=== PATIENT | male | born 1950 | race Caucasian/White ===

== ENCOUNTER 2021-09-03 16:52 | Emergency (ER) | payer OTHER, SELFPAY ==
[2021-09-03 16:59] VITALS: BP 160/85; PULSE 95; RESP 16; TEMP 36.1; O2SAT 98
--- NOTE | 2021-09-03 17:00 | DI.RAD_ITS ---
Exam(s) XR KNEE LT 2V AP,LAT EXAM: XR KNEE LT 2V AP,LAT CLINICAL HISTORY: painful effusion. TECHNIQUE: 2D digital imaging was performed of the left knee. Two images were obtained. AP and lat eral views were obtained. COMPARISON: No exams were available for comparison FINDINGS: BONES: No acute fracture is present. No bony destructive lesion is seen. Probably incidental chronic growth arrest lines are seen in the distal femoral diaphysis. No periosteal reaction or cortical komal cency is seen. JOINTS: The knee is normally aligned. Moderate joint effusion. Very mild degenerative changes are se en in the knee. SOFT TISSUE: Normal. IMPRESSION: Moderate joint effusion. DATA REPOSITORY: RADIATION DOSE DELIVERED:
--- NOTE | 2021-09-03 17:17 | ED.GENADUL_ITS ---
Discharge Plan Disposition Patient Disposition: HOME Condition: Stable Discharge Details Chief Complaint: Orthopedic Clinical Impression: Knee swelling Primary Care Provider: Unknown,Unknown ED Provider: Cuco Gonzalez Home Meds and New Rx's Prescriptions: No Action No Known Home Meds Discharge Instructions Instructions: Swollen Knee Joint (ED) Additional Instructions: Please follow-up tomorrow no with orthopedic surgical team. [facility]. Please return to the emergency department if you develop fevers chills sweats worsening pain redness swelling or other signs of infection. Medical Decision Making 71-year-old male presents with atraumatic left knee effusion, afebrile nontoxic ambulatory, range of motion largely intact however full flexion inhibited by tension in knee pain, warm knee without erythema or induration, no signs of trauma, soft compartments sensate extremity good perfusion, consider effusion related to osteoarthritis versus gout versus must consider early septic joint given subjective chills versus unlikely fracture dislocation or ligamentous injury given history and physical. Screening x-ray, labs inflammatory markers cultures, will perform arthrocentesis to send for culture Gram stain crystals cell count protein LDH, analgesia anti-inflammatory close reassessment disposition pending results of arthrocentesis. 22: 59 patient resting comfortably no acute distress. Afebrile nontoxic. Arthrocentesis resulted in 20 cc of cloudy yellow synovial fluid, sent for lab analysis, unfortunately the lab called to say that because sample was partially clotted they could not run a cell count however they did note that it was a pre dominant neutrophilia, gram stain was negative for any bacteria. Glucose LDH and protein to be sent out. Sent for anaerobic and aerobic culture. Attempted second tap medial location to obtain cell count however no further fluid in joint space. Patient's range of motion is intact without pain. Warmth is reduced in knee. No erythema. Does have mild white count and inflammatory markers. No crystals in fluid. Had shared decision making with patient and family regarding plan, given negative Gram stain and painless range of motion and nontoxic patient, patient will be discharged home will follow up with orthopedic team, [facility], given strict return precautions for fevers worsening pain swelling decreased mobility or any other signs of infection. We will follow-up with cultures. We will also send tick panel/Lyme HPI General Date/Time Provider Initiated Documentation: 09/03/21 17:06 . HPI Narrative: 71-year-old male no past medical history presents with spontaneous swollen left knee over the past day painful in nature warm to the touch associated with subjective chills, denies trauma, denies history of gout, denies increase in meat or alcohol consumption. Can walk on the knee and can bend it however cannot fully flex due to tension in the knee. Related Data Home Medications Medication Instructions Recorded Confirmed Unknown [No Known Home Meds] 09/03/21 09/03/21 Allergies Allergy/AdvReac Type Severity Reaction Status Date / Time No Known Allergies Allergy Unverified 09/03/21 17:04 General Stated Complaint: Orthopedic JOSÉ: 4 Review of Systems Narrative: Review of Systems Constitutional: negative Eyes: negative ENT: negative Cardiovascular: negative Respiratory: negative Gastrointestinal: negative : negative Musculoskeletal: Knee pain Skin: negative Neurologic: negative Psych: negative PFSH All Active Problems (Updated 09/03/21 @ 23:09 by Cuco Gonzalez MD) Knee swelling (Acute) Social History Smoking/Tobacco Use Status: Current-Occasional Tobacco Type: cigars Smoking risk assessment performed?: Yes Drug use: Occasionally Substance use type: marijuana Exam Narrative Exam Narrative: Physical Examination General: alert, awake, cooperative, resting comfortably, no acute distress HEENT: normocephalic, atraumatic; PERRL, EOM intact, conjunctiva normal; no nasal discharge; moist mucous membranes, oral and pharyngeal mucosa normal, tolerating secretions Neck: supple, trachea midline; full ROM Chest: normal to inspection Respiratory: normal respiratory effort, speaking in full sentences, clear to auscultation, no wheezing, rales or rhonchi Cardiac: regular rate, regular rhythm, S1S2 intact, no murmurs rubs or gallops GI: abdomen soft, non-tender, non-distended; no palpable mass or hepatosplenomegaly Skin: no lesions, rashes or trauma appreciated Neuro: AAOx3, normal speech, moving all extremities Extremities: Left lower extremity: Large effusion, warm joint, no induration or erythema, patient is able to flex and extend knee extension is complete, flexion is incomplete due to tension in the after 90 degrees, patient is able to ambulate, soft compartments Psych: Appropriate mood and affect Course Vital Signs Vital signs: Vital Signs Temperature 36.1 C L 09/03/21 16:59 Pulse 95 H 09/03/21 16:59 Respiratory Rate 16 09/03/21 16:59 Blood Pressure 160/85 H 09/03/21 16:59 Pulse Oximetry 98 09/03/21 16:59 Temperature 36.1 C L 09/03/21 16:59 Temperature Source Skin 09/03/21 16:59 Pulse 95 H 09/03/21 16:59 Respiratory Rate 16 09/03/21 16:59 Respiratory Effort 09/03/21 16:59 Blood Pressure 160/85 H 09/03/21 16:59 Blood Pressure Position Sitting 09/03/21 16:59 Pulse Oximetry 98 09/03/21 16:59 Oxygen Delivery Method Room Air 09/03/21 16:59 Oxygen Flow Rate 0 09/03/21 16:59 Pain Level 8 09/03/21 16:59 Lab/Test Results Lab/Test Results: 09/03/21 17:12 Blood Blood Culture - Pending 09/03/21 17:12 Blood Blood Culture - Pending Procedures Joint Aspiration/Injection Joint Asp./Inject. 1: Time Out Performed: Yes Side of body: left Joint Aspirated: knee Ultrasound Guidance: No Skin Prep: Povidone-Iodine1% Local Anesthetic: Lidocaine 1% Amount of anesthesia used (mL): 2 Needle Size Used: 18G Fluid Obtained: turbid Total fluid obtained (mL): 20 Patient Tolerated Procedure: well Complications: none Joint Asp./Inject. 2: Time Out Performed: Yes Side of body: left Joint Aspirated: knee Ultrasound Guidance: No Skin Prep: Povidone-Iodine1% Local Anesthetic: Lidocaine 1% Amount of anesthesia used (mL): 2 Needle Size Used: 18G Total fluid obtained (mL): 0 Patient Tolerated Procedure: other (This attempt was performed in the medial location, no fluid was obtained. Initial aspiration was formed the lateral location and was successful.)
[2021-09-03 17:46] VITALS: BP 140/91; PULSE 75; RESP 18; TEMP 36.6; O2SAT 97
[2021-09-03 17:50] LABS: Abs Immature Grans 0.12 10^3/uL (0.0-0.06); Absolute Basophil Count 0.05 10^3/uL (0.0-0.2); Absolute Eosinophil Count 0.12 10^3/uL (0.0-0.7); Absolute Lymphocyte Count 3.33 10^3/uL (1.2-3.4); Absolute Monocyte Count 1.26 10^3/uL (0.1-0.8); Absolute Neutrophil Count 7.14 10^3/uL (1.2-6.7); Basophils % 0.4; HCT 45.8 % (40.0-50.0); HGB 15.8 g/dL (13.5-17.5); Lymphocytes % 27.7; MCHC 34.5 % (32.0-36.0); MCV 102 fL (80-95); MPV 10.1 fL (8.0-11.0); Monocytes % 10.5; Neutrophils % 59.4; Platelet Count 310 10^3/uL (130-400); RBC 4.51 10^6/uL (4.36-5.78); RDW 11.9 % (11.8-14.1); RDW-SD 44.9 fL; WBC 12.02 10^3/uL (4.4-10.8)
--- NOTE | 2021-09-03 18:01 | DI.VRAD_ITS ---
PROCEDURE INFORMATION: Exam: XR Left Knee Exam date and time: 09/03/2021 5:33 PM Age: 71 years old Clinical indication: Other: Painful effusion TECHNIQUE: Imaging protocol: XR Left knee. Views: 1 or 2 views. Total images: 0 COMPARISON: No relevant prior studies available. FINDINGS: Bones/joints: Osteopenia. No acute macro fracture is evident. Transverse incomplete sclerotic bands are seen in the medial aspect of the distal femoral diaphysis without overlying cortical breakage or periostitis. Given the degree of osteopenia, these might represent chronic Looser zones of nondisplaced insufficiency fracture although the location is atypical, or alternatively might represent chronic growth arrest lines from childhood. Consider bone scan as clinically indicated. Moderate joint effusion distending the suprapatellar bursa. Minimal osteoarthritic joint space narrowing at the medial joint line due to marginal spurring. Soft tissues: No periostitis or osteolysis. Anterolateral soft tissue swelling. No foreign bodies. Other findings: Normal alignment. IMPRESSION: 1. No acute macro fractures are identified. 2. Osteopenia. 3. Moderate joint effusion. 4. Anterolateral soft tissue swelling. 5. Incomplete sclerotic bands in the medial aspect of the distal femoral diaphysis, probably incidental chronic growth arrest lines although Looser zones of prior insufficiency fracture might present this appearance, although the location is atypical. Bone scan may be helpful if the patient is locally symptomatic in this region. Dictated and Authenticated by: Tarun Yañez MD. Ordering:MOISE Norwood MD
[2021-09-03 18:06] LABS: ESR 27 mm/hr (0-20)
[2021-09-03 18:07] LABS: PTT Activated 27.8 sec (21.0-27.5); Prothrombin Time 9.9 sec (9.3-11.0)
[2021-09-03 18:11] LABS: ALT 16 U/L (16-63); AST 15 U/L (15-37); Albumin 3.4 g/dL (3.4-5.0); Alkaline Phosphatase 89 U/L (46-116); Anion Gap 6.5 mmol/L (3-11); BUN 13 mg/dL (7-18); Bilirubin, Total 0.5 mg/dL (0.2-1.0); C-Reactive Protein 11.55 mg/dL (0.0-0.3); CO2 29.5 mmol/L (21.0-32.0); Calcium 9.1 mg/dL (8.5-10.1); Chloride 99 mmol/L (98-107); Glucose 120 mg/dL (74-106); Sodium 135 mmol/L (136-145); Total Protein 8.1 g/dL (6.4-8.2)
[2021-09-03] MEDS: Ketorolac 15 MG/ML VIAL IVP (19:05)
[2021-09-03 19:33] LABS: Crystals (BF) No Crystals seen
[2021-09-03 20:23] LABS: Clarity Cloudy
[2021-09-03 20:27] LABS: Mononuclear Cells 3 %; Polynuclear Cells 97 %
[2021-09-03 23:41] VITALS: BP 159/83; PULSE 87; RESP 16; O2SAT 98
[2021-09-05 11:19] LABS: Lyme Ab w Rflx to Lyme Confirm Positive (Negative)
[2021-09-05 12:14] LABS: Lyme IgG Ab Positive (Negative); Lyme IgM Ab Negative (Negative)
[2021-09-05 15:02] LABS: Lactate Dehydrogenase (LD), BF 728 U/L
[2021-09-05 15:25] LABS: Glucose, BF 55 mg/dL
[2021-09-05 15:26] LABS: Protein,Total, BF 6.1 g/dL
[2021-09-07 15:25] LABS: Anaplasma phagocytophilum Negative (Negative); B. miyamotoi PCR Negative (Negative); Babesia divergens/MO-1 Negative (Negative); Babesia duncani Negative (Negative); Babesia microti Negative (Negative); Ehrlichia chaffeensis Negative (Negative); Ehrlichia ewingii/canis Negative (Negative); Ehrlichia muris eauclairensis Negative (Negative)
== END 2021-09-03 23:44 | disposition home or self-care (01) ==
PROVIDERS: Emergency Provider Emergency Medicine
DX: M25.462 Effusion, left knee (principal)
CPT/HCPCS: 20610; 36410; 80053; 82945; 85652; 86617; 87040; 87798; 96374; 99284; 73560; 81373; 83615; 84157; 85025; 85610; 85730; 86140; 86618; 87070; 87075; 87205; 89051; 89060; 99283; J1885; J3490

== ENCOUNTER 2021-09-08 11:36 | Outpatient (CLI) | payer OTHER, SELFPAY ==
--- NOTE | 2021-09-08 11:30 | DI.RAD_ITS ---
Exam(s) XR KNEE LT 4V AP,LAT,KOJO,PAT EXAM: XR KNEE LT 4V AP,LAT,KOJO,PAT CLINICAL HISTORY: left knee effusion and pain. TECHNIQUE: 2D digital imaging was performed. Three views. COMPARISON: CR,XR XR KNEE LT 2V AP,LAT from 09/03/2021 FINDINGS: BONES: No acute fracture is present. No bony destructive lesion is seen. Mild periarticular spurring JOINTS: Moderate narrowing of the medial femoral tibial joint. The knee is normally aligned. A joint effusion is seen. SOFT TISSUE: Normal. IMPRESSION: Moderate degenerative changes medial femoral tibial joint. Joint effusion. DATA REPOSITORY: RADIATION DOSE DELIVERED:
[2021-09-08 12:42] LABS: Clarity Cloudy
[2021-09-08 12:43] LABS: Crystals (BF) No Crystals seen; Mononuclear Cells 67 %; Nucleated Cells 1188 uL (0); Polynuclear Cells 33 %
== END 2021-09-08 11:37 | disposition home or self-care (01) ==
LOC: DIORS 11:36
PROVIDERS: Visit Provider Student in an Organized Health Care Education/Training Program
DX: M23.8X2 Other internal derangements of left knee; M25.462 Effusion, left knee; M17.12 Unilateral primary osteoarthritis, left knee
CPT/HCPCS: 73564; 87070; 87205; 89051; 89060